=== PATIENT | male | born 1945 | race Caucasian/White ===

== ENCOUNTER 2021-01-18 16:16 | Observation (INO) | payer OTHER, MEDICARE ==
[~2021-01-18] VITALS: Ht 182.9 cm; Wt 90.2 kg
[~2021-01-18 16:16] MED LIST: ASPI-1265 PO; ATOR20TA PO; CHOL2000 PO; CYAN500T71 PO; FLAX100032 PO; FLO0.4C PO; GLUC1TAB40 PO; MULT-785 PO; NIA500ERT PO; OMEG1CAP54 PO; UBID50TA3 PO; [UNRECOGNIZED DRUG - CODE] PO
[2021-01-18 18:10] LABS: BASOPHILS % (AUTO) 0.6 % (0-1); EOSINOPHILS # (AUTO) 0.4 X10'3 (0-0.9); EOSINOPHILS % (AUTO) 5.2 % (0-6); HEMATOCRIT 42.5 % (42.0-52.0); HEMOGLOBIN 14.5 g/dl (14.0-17.9); LYMPHOCYTES # (AUTO) 1.3 X10'3 (1.1-4.8); LYMPHOCYTES % (AUTO) 19.5 % (21-51); MEAN CORPUSCULAR HEMOGLOBIN 30.7 PG (27.0-31.0); MEAN CORPUSCULAR HGB CONC 34.1 g/dL (33.0-36.5); MEAN PLATELET VOLUME 7.7 FL (7.4-10.4); MONOCYTES # (AUTO) 0.7 X10'3 (0-0.9); MONOCYTES % (AUTO) 10.4 % (2-12); NEUTROPHILS # (AUTO) 4.4 X10'3 (1.8-7.7); NEUTROPHILS % (AUTO) 64.3 % (42-75); PLATELET COUNT 220 X10'3 (140-440); RED BLOOD COUNT 4.72 X10'6 (4.70-6.10); RED CELL DISTRIBUTION WIDTH 13.5 % (11.5-14.5); WHITE BLOOD COUNT 6.8 X10'3 (4.5-11.0)
[2021-01-18 18:27] LABS: ALANINE AMINOTRANSFERASE 34 U/L (12-78); ALBUMIN 3.4 G/DL (3.4-5.0); ALKALINE PHOSPHATASE 60 IU/L (46-116); ANION GAP 11 (8-16); ASPARTATE AMINO TRANSFERASE 26 U/L (10-37); BILIRUBIN,TOTAL 0.3 MG/DL (0.1-1.0); BLOOD UREA NITROGEN 21 MG/DL (7-18); BUN/CREATININE RATIO 20.4 (5.4-32.0); CHLORIDE 106 MMOL/L (99-107); CREATININE 1.03 MG/DL (0.60-1.10); GLUCOSE 137 MG/DL (70-104); POTASSIUM 4.6 MMOL/L (3.5-5.1); SODIUM 141 MMOL/L (135-145); TOTAL CARBON DIOXIDE 24.5 MMOL/L (24-32); TOTAL PROTEIN 6.8 G/DL (6.4-8.2); eGFR 71 ML/MIN
[2021-01-18] MEDS ORDERED: mag hydrox/Alum hydrox/simeth 30ml oral suspension PO ONE (18:35)
[2021-01-18] MEDS ORDERED: nitroGLYCERIN 0.4mg SUBLingual tab SL PRN ×4 (18:35→19:50)
[2021-01-18] MEDS ORDERED: sucralfate 1 gm tablet PO ONE (18:35)
[2021-01-18] MEDS ORDERED: LIDOcaine Viscous 15ml cup MM ONE (18:35)
[2021-01-18] MEDS ORDERED: magnesium hydroxide 30ml (MOM) UD suspension PO PRN (19:40)
[2021-01-18] MEDS ORDERED: ondansetron/PF 4mg/2ml inj IV PRN (19:40)
[2021-01-18] MEDS ORDERED: aminophylline 250mg/10ml inj. IV PRN (19:40)
[2021-01-18] MEDS ORDERED: regadenoson 0.4mg/5ml syringe IV ONE (19:40)
[2021-01-18] MEDS ORDERED: potassium Cl 20 mEq SR tablet PO PRN ×2 (19:40)
[2021-01-18] MEDS ORDERED: HYDROcodone/acetaminophen 5mg/325mg tablet PO PRN (19:40)
[2021-01-18] MEDS ORDERED: magnesium 4gm in 100ml NS 100 ML IV PRN (19:40)
[2021-01-18] MEDS ORDERED: acetaminophen 325mg tablet PO PRN (19:40)
[2021-01-18] MEDS ORDERED: potassium Cl 40MEQ/1/2NS 520ml 520 ML IV PRN ×2 (19:40)
[2021-01-18] MEDS ORDERED: aspirin 81mg tab.chew PO ONE (19:40)
[2021-01-18] MEDS ORDERED: magnesium 2GM in 50ml NS 50 ML IV PRN (19:40)
[2021-01-18] MEDS ORDERED: mag hydrox/Alum hydrox/simeth 30ml oral suspension PO PRN (19:40)
[2021-01-18] MEDS ORDERED: magnesium Cl slow-release 64mg tablet PO PRN (19:40)
[2021-01-18] MEDS ORDERED: metoprolol tartrate 1mg/ml inj IV PRN (19:40)
--- NOTE | 2021-01-18 19:49 | NUR ---
Pt stated that he feels numbness from the GI cocktail but felt another chest pain episode even after the cocktail. Pt stated that it wasn't as bad as the previous episode. Will continue to monitor.
--- NOTE | 2021-01-18 19:52 | NUR ---
[facility], where pt is a resident, has been updated for pt's hospital admission status.
[2021-01-18] MEDS ORDERED: K and/or MAG REPLACEMENT MC SCH (20:00)
[2021-01-18] MEDS ORDERED: CYAN-34 PO (20:34)
--- NOTE | 2021-01-18 20:37 | NUR ---
Daughter Goldie Welsh [phone] (mobile) [phone] (home). Daughter updated on plan of care.
[2021-01-18] MEDS ORDERED: METF-436 PO (20:41)
[2021-01-18] MEDS ORDERED: METF-438 PO (20:41)
[2021-01-18] MEDS ORDERED: METO25TA6 PO (20:43)
[2021-01-18] MEDS ORDERED: LACT1CAP75 PO (20:53)
[2021-01-18] MEDS ORDERED: METH10005 (20:53)
[2021-01-18 21:30] VITALS: BP 138/70
[2021-01-19] VITALS (9 sets, daily range): BP systolic 91–125; BP diastolic 49–72
[2021-01-19] MEDS ORDERED: MESSAGE TO PHARMACY PO ONE (04:15)
[2021-01-19] MEDS ORDERED: insulin Lispro (HumaLOG) vial - multi-dose SQ SCH (04:15)
[2021-01-19] MEDS ORDERED: dextrose 50%-water 50ml dispensing syringe IV PRN ×2 (04:15)
[2021-01-19] MEDS ORDERED: glucagon, human recombinant 1mg kit SUBCUT PRN (04:15)
[2021-01-19] MEDS ORDERED: dextrose ORAL solution 15 GM/59 ML bottle PO PRN ×2 (04:15)
[2021-01-19 06:52] LABS: BASOPHILS % (AUTO) 0.7 % (0-1); EOSINOPHILS # (AUTO) 0.4 X10'3 (0-0.9); EOSINOPHILS % (AUTO) 6.2 % (0-6); HEMATOCRIT 44.2 % (42.0-52.0); HEMOGLOBIN 14.6 g/dl (14.0-17.9); LYMPHOCYTES # (AUTO) 1.7 X10'3 (1.1-4.8); LYMPHOCYTES % (AUTO) 27.4 % (21-51); MEAN CORPUSCULAR HEMOGLOBIN 30.4 PG (27.0-31.0); MEAN CORPUSCULAR HGB CONC 33.1 g/dL (33.0-36.5); MEAN CORPUSCULAR VOLUME 91.9 FL (78-98); MEAN PLATELET VOLUME 7.8 FL (7.4-10.4); MONOCYTES # (AUTO) 0.8 X10'3 (0-0.9); MONOCYTES % (AUTO) 12.1 % (2-12); NEUTROPHILS # (AUTO) 3.4 X10'3 (1.8-7.7); NEUTROPHILS % (AUTO) 53.6 % (42-75); PLATELET COUNT 193 X10'3 (140-440); RED BLOOD COUNT 4.81 X10'6 (4.70-6.10); RED CELL DISTRIBUTION WIDTH 13.3 % (11.5-14.5); WHITE BLOOD COUNT 6.4 X10'3 (4.5-11.0)
[2021-01-19 07:05] LABS: ALANINE AMINOTRANSFERASE 42 U/L (12-78); ALBUMIN 3.3 G/DL (3.4-5.0); ALKALINE PHOSPHATASE 63 IU/L (46-116); ANION GAP 6 (8-16); ASPARTATE AMINO TRANSFERASE 31 U/L (10-37); BILIRUBIN,TOTAL 0.3 MG/DL (0.1-1.0); BLOOD UREA NITROGEN 20 MG/DL (7-18); BUN/CREATININE RATIO 22.7 (5.4-32.0); CALCIUM 8.9 MG/DL (8.5-10.1); CHLORIDE 105 MMOL/L (99-107); CREATININE 0.88 MG/DL (0.60-1.10); GLUCOSE 123 MG/DL (70-104); SODIUM 139 MMOL/L (135-145); TOTAL CARBON DIOXIDE 28.5 MMOL/L (24-32); TOTAL PROTEIN 6.6 G/DL (6.4-8.2); eGFR 85 ML/MIN
[2021-01-19] MEDS ORDERED: metoprolol tartrate 12.5mg (1/2 tablet) PO SCH (08:00)
[2021-01-19] MEDS ORDERED: tamsulosin 0.4mg capsule PO SCH (08:00)
[2021-01-19] MEDS ORDERED: aspirin 81mg tab.chew PO SCH (08:00)
--- NOTE | 2021-01-19 12:22 | NUR ---
Paged Dr. Powell regarding marivel results and if we may feed the patient. PAGER ID: [phone] MESSAGE: [phone]. ALEE CHIU. MARIVEL HAS RESULTED. MAY WE FEED THE PATIENT? THANK YOU. DIANDRA Blanchard [phone]
[2021-01-19] MEDS ORDERED: insulin glargine (Lantus) pen - multi-dose SQ SCH (21:00)
[2021-01-19] MEDS ORDERED: atorvastatin 20mg tablet PO SCH (21:00)
== END 2021-01-19 15:40 | disposition home or self-care (01) ==
LOC: ER 16:17 → ED HOLD 19:38 → MED 3N 21:19
PROVIDERS: ADMIT Family Medicine; ATTEND Family Medicine
DX: R07.89 Other chest pain (principal); E11.59 Type 2 diabetes mellitus with other circulatory complications; I10 Essential (primary) hypertension; E78.5 Hyperlipidemia, unspecified; I25.10 Atherosclerotic heart disease of native coronary artery without angina pectoris; N40.0 Benign prostatic hyperplasia without lower urinary tract symptoms; Z87.891 Personal history of nicotine dependence; Z95.1 Presence of aortocoronary bypass graft; Z95.5 Presence of coronary angioplasty implant and graft; Z79.82 Long term (current) use of aspirin; Z79.84 Long term (current) use of oral hypoglycemic drugs; Z79.899 Other long term (current) drug therapy
CPT/HCPCS: 36415; 71045; 78452; 80053; 82948; 83036; 83735; 83880; 84484; 85025; 87081; 93005; 93017; 93306; 99284; A9500; G0378; J1815; J2785

== ENCOUNTER 2025-09-26 20:32 | Emergency (ER) | payer OTHER, MEDICARE ==
[~2025-09-26] VITALS: Ht 182.9 cm; Wt 85.0 kg
[~2025-09-26 20:32] MED LIST changes: +CYAN-34 PO; -CYAN500T71 PO; -FLO0.4C PO; +LACT1CAP75 PO; +LOP25T PO; +METF-436 PO; +METF-438 PO; +TAMS-55 PO; +[UNRECOGNIZED DRUG - CODE]
[2025-09-26 20:36] VITALS: BP 135/48; PULSE 73; RESP 18; TEMP 97.7; O2SAT 94
--- NOTE | 2025-09-26 20:37 | Physician Documentation ---
History of Present Illness General Stated Complaint: BRADYCARDIA Time Seen by MD: 20:36 History of Present Illness Initial Comments Patient is a 80-year-old male with a history of diabetes and coronary artery disease who noticed that has wash was alarming him that his heart rate was slow. Patient states he has had no chest pain shortness of breath weakness or increased dizziness. He states the alert occurred today told his staff at the [facility] and they sent the patient in for a evaluation. The patient denies any chest pain or shortness of breath he states he does have chronic dizziness he does not state it is any worse since he has gotten these noti fications on his phone. The patient states he had atrial bypass 24 years ago but has not had any cardiac problems since then he states he does take metoprolol. Medication Reconciliation Allergies: Coded Allergies: No Known Allergies (Unverified , 04/22/14) Scheduled Aspirin (Aspirin), 1 TAB.CHEW PO DAILY, (Reported) Atorvastatin Calcium* (Lipitor*), 1 TAB PO HS, (Reported) Cholecalciferol (Vitamin D3) (Vitamin D-3), 2,000 UNIT PO DAILY, (Reported) Cyanocobalamin (Vitamin B-12) (Vitamin B-12), 1 CAP PO DAILY, (Reported) Flaxseed Oil (Flaxseed), 1,000 MG PO DAILY, (Reported) Gluc Hcl/Msm/C/Mn/[place]/Ging (Msm Glucosamine Complex Tab), 1 EACH PO DAILY, (Reported) Lactobacillus Combo No.10 (Probiotic), 1 TAB PO DAILY, (Reported) Metformin HCl (Metformin HCl), 1 TAB PO HS, (Reported) Metformin Hcl (Metformin Hcl), 1 TAB PO DAILY, (Reported) Metoprolol Tartrate* (Lopressor tablet*), 0.5 TAB PO DAILY, (Reported) Multivitamins* (Multivitamin*), 1 EACH PO DAILY, (Reported) Niacin* (Niaspan*), Unknown Dose PO DAILY, (Reported) [place]-3 Fatty Acids/Fish Oil (Fish Oil 1,000 Mg Capsule), 1 EACH PO DAILY, (Reported) Tamsulosin Hcl* (Flomax*), 2 CAP PO DAILY, (Reported) Ubidecarenone (Coq10), 100 MG PO DAILY, (Reported) [mag-zinc], PO DAILY, (Reported) Miscellaneous Medications Methylsulfonylmethane (Msm), 1,000 MG, (Reported) Past Medical History Past Medical History: Coronary Artery Disease, Hypertension Past Surgical History: coronary bypass surgery Alcohol Use: None Drug Use: none Lives In: Assisted Care Review of Systems All Other Systems at this time: Reviewed and Negative Physical Exam Physical Exam Physical Exam VITALS: Reviewed and as above. GENERAL: Alert, no apparent distress. HEENT: Normocephalic, atraumatic, PERRL, EOMI, dry mucosa, no erythema RESPIRATORY: Lungs clear, normal breath sounds, no respiratory distress. CHEST: No accessory muscle use, no retractions CV: Irregularly regular, rhythm, no edema, no murmur, No: JVD GI: Soft, non-tender, bowels sounds present, no rebound, guarding, or rigidity BACK: No CVA tenderness, or swelling MUSCULOSKELETAL: No deformities, no edema SKIN: Warm and dry, no rash NEURO: Oriented x4, No motor or sensory deficit PSYCH: Normal mood and affect, no agitation Progress Results/Orders Results/Orders Orders - OHLZAHIRA JACOBS MD Chest,Single View (09/26/25 20:37) Hs Troponin I W Calculations (09/26/25 22:37) Hs Troponin I W Calculations (09/26/25 23:37) Completed Orders - ZAHIRA CALVERT MD Cbc/Diff (09/26/25 20:37) MG (09/26/25 20:37) Electrocardiogram (09/26/25 20:37) PBNP (09/26/25 20:37) Chest,Single View (09/26/25 20:37) BMP (09/26/25 20:37) Hs Troponin I W Calculations (09/26/25 20:37) Normal Saline 1000ml (0.9% Sodium Chlori (09/26/25 22:00) Vital Signs 09/26/25 20:36 Temp 97.7 Pulse 73 Resp 18 B/P (MAP) 135/48 Pulse Ox 94 Laboratory Tests Test 09/26/25 20:52 White Blood Count 8.6 Red Blood Count 4.61 L Hemoglobin 14.3 Hematocrit 40.8 L Mean Corpuscular Volume 88.5 Mean Corpuscular Hemoglobin 31.0 Mean Corpuscular Hemoglobin Concent 35.0 Red Cell Distribution Width 13.6 Platelet Count 219 Mean Platelet Volume 7.6 Neutrophils (%) (Auto) 59.4 Lymphocytes (%) (Auto) 24.4 Monocytes (%) (Auto) 10.5 Eosinophils (%) (Auto) 4.7 Basophils (%) (Auto) 1.0 Neutrophils # (Auto) 5.1 Lymphocytes # (Auto) 2.1 Monocytes # (Auto) 0.9 Eosinophils # (Auto) 0.4 Basophils # (Auto) 0.1 CBC Comment Sodium Level 139 Potassium Level 4.5 Chloride Level 107 Carbon Dioxide Level 23.1 L Anion Gap 9 Blood Urea Nitrogen 32 H Creatinine 1.25 H Estimated GFR/1.73 m2 56 BUN/Creatinine Ratio 25.6 H Glucose Level 120 H Calcium Level 8.8 Magnesium Level 1.7 Troponin I High Sensitivity 8 Pro-B-Type Natriuretic Peptide 515 H Albumin 3.8 Chemistry Comments Medical Decision Making Findings The patient is 12 lead EKG demonstrates a normal axis with a sinus rhythm with ventricular bigeminy at a rate of [address] abnormalities the impression is an abnormal EKG. The patient's pulse oximetry was interpreted as adequate normal. The patient's electronic device monitor was interpreted as bigeminy Departure Disposition: HOME / SELF CARE / HOMELESS Impression: Primary Impression: Bradycardia Additional Impressions: PVC (premature ventricular contraction) Dehydration Discharge Instructions: Bradycardia, Adult Referrals: NO PRIMARY CARE PROVIDER (PCP) ZAHIRA CALVERT MD Sep 26, 2025 20:37
--- NOTE | 2025-09-26 20:57 | ELECTROCARDIOGRAPH REPORT ---
[facility] Test Date: 2025-09-26 Test Time: 20:54:21 Pat Name: ALEE CHIU Department: [facility] Patient ID: [facility]-[id number] Room: Gender: M Receiver Dispatcher: : [id number] Requested By: ZAHIRA CALVERT Order Number: [id number] Reading MD: Measurements Intervals [place] Rate: 87 P: 63 DE: 166 QRS: 40 QRSD: 90 T: 60 QT: 384 QTc: 462 Interpretive Statements Incomplete analysis due to missing data in precordial lead(s) Sinus rhythm Ventricular bigeminy Nonspecific T abnormalities, lateral leads Missing lead(s): V2 Please click the below link to view image of tracing.
--- NOTE | 2025-09-26 20:57 | RADIOLOGY REPORT ---
EXAM: DI CHEST,SINGLE VIEW CLINICAL HISTORY: CP TECHNIQUE: Single AP view of the chest WID: COMPARISON: 01/18/2021 FINDINGS: Lines and tubes: Prior median sternotomy and CABG. Chest: Mild cardiomegaly without pulmonary vascular congestion. Calcified plaque projects Over the aortic arch. No pleural effusion, pneumothorax, or consolidation. Linear bibasilar scarring or atelectasis. The osseous structures are grossly intact. IMPRESSION: 1. Mild cardiomegaly without CHF or pneumonia.
[2025-09-26 20:59] LABS: MEAN PLATELET VOLUME 7.6 FL (7.4-10.4); RED CELL DISTRIBUTION WIDTH 13.6 % (11.5-14.5)
[2025-09-26 21:26] LABS: CREATININE 1.25 MG/DL (0.60-1.10); PRO BRAIN NATRIURETIC PEPTIDE 515 PG/ML (0-450); TOTAL CARBON DIOXIDE 23.1 MMOL/L (24-32); eCRCL 53 ML/MIN; eGFR 56 ML/MIN
[2025-09-26] MEDS ORDERED: normal saline 1000ML IV soln IVB ONE (22:00)
== END 2025-09-26 22:59 | disposition home or self-care (01) ==
LOC: ER 20:32
DX: I49.3 Ventricular premature depolarization (principal); R00.1 Bradycardia, unspecified; E11.9 Type 2 diabetes mellitus without complications; E86.0 Dehydration; I10 Essential (primary) hypertension; I25.10 Atherosclerotic heart disease of native coronary artery without angina pectoris; Z95.1 Presence of aortocoronary bypass graft; Z79.82 Long term (current) use of aspirin; Z79.899 Other long term (current) drug therapy; Z79.84 Long term (current) use of oral hypoglycemic drugs
CPT/HCPCS: 36415; 71045; 80048; 83735; 83880; 84484; 85025; 93005; 99285